=== PATIENT | male | born 1990 | race Caucasian/White ===

== ENCOUNTER 2019-05-25 18:18 | Emergency (ER) | payer MEDICAID ==
[~2019-05-25] VITALS: Ht 167.6 cm; Wt 95.5 kg
[2019-05-25] MEDS ORDERED: albuterol 2.5 MG/3 ML nebule NEB ONE (18:30)
[2019-05-25] MEDS ORDERED: normal saline 1000ML IV soln IVB ONE (18:30)
[2019-05-25] MEDS ORDERED: diphenhydrAMINE 50 mg/ml inj IV ONE (18:30)
[2019-05-25] MEDS ORDERED: methylPREDNISolone sod succ 125mg/2ml vial IV ONE (18:30)
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
--- NOTE | 2019-05-25 20:01 | NUR ---
pt is resting quietly, "I am ready to go home", pt is very talkative, resp even and unlabored, joking with family
[2019-05-25] MEDS ORDERED: EPIN0.3P3 SUBCUT (20:02)
[2019-05-25 20:13] VITALS: BP 155/79
== END 2019-05-25 20:14 | disposition home or self-care (01) ==
LOC: ER 18:19
DX: T63.441A Toxic effect of venom of bees, accidental (unintentional), initial encounter (principal); Z88.5 Allergy status to narcotic agent; Y92.89 Other specified places as the place of occurrence of the external cause
CPT/HCPCS: 94640; 94760; 96374; 96375; 99283; J1200; J2930; J7030